=== PATIENT | male | born 1995 | race African-American/Black ===

== ENCOUNTER 2020-10-21 12:00 | Emergency (ER) | payer BC ==
[~2020-10-21] VITALS: Ht 185.4 cm; Wt 83.3 kg
--- NOTE | 2020-10-21 12:27 | NUR ---
CALLED FOR PT. PT NOT IN LOBBY
[2020-10-21] MEDS ORDERED: SODIUM CHLORIDE FLUSH 10ML SYR IVF ONE (13:00)
[2020-10-21] MEDS ORDERED: SODIUM CHLORIDE 0.9% 1,000ML IVBOLUS ONE (13:00)
[2020-10-21] MEDS ORDERED: FAMOTIDINE 20 MG/2 ML IVPush ONE (13:00)
[2020-10-21] MEDS ORDERED: MAALOX/HYOSCYAMINE/LIDOCAINE 45 ML BTL PO ONE (13:00)
[2020-10-21] MEDS ORDERED: ONDANSETRON 2MG/ML, 2ML IVPush ONE (13:00)
[2020-10-21 13:31] LABS: BASOPHILS % (AUTO) 1 % (0-1); EOSINOPHILS % (AUTO) 1 % (1-7); LYMPHOCYTES % (AUTO) 9 % (22-44); MEAN CORPUSCULAR HEMOGLOBIN 28.1 pg (27.5-34.5); MEAN CORPUSCULAR HGB CONC 33.8 g/dL (33.2-36.2); MEAN PLATELET VOLUME 8.4 fL (7.4-10.4); MONOCYTES % (AUTO) 5 % (2-9); NEUTROPHILS % (AUTO) 85 % (42-75); PLATELET COUNT 286 x10^3/uL (130-400); RED BLOOD COUNT 6.07 x10^6/uL (4.38-5.82); RED CELL DISTRIBUTION WIDTH 14.2 % (9.4-14.8)
[2020-10-21 13:32] LABS: ALANINE AMINOTRANSFERASE 27 U/L (12-78); ALBUMIN 4.6 g/dL (3.4-5.0); ANION GAP 8 mmol/L (5-15); CALCIUM 9.7 mg/dL (8.5-10.1); CHLORIDE 105 mmol/L (98-107); CREATININE 1.34 mg/dL (0.7-1.3)
[2020-10-21 13:34] LABS: ALKALINE PHOSPHATASE 51 U/L (45-117); TOTAL PROTEIN 8.3 g/dL (6.4-8.2)
--- NOTE | 2020-10-21 16:18 | NUR ---
PT AMBULATORY TO ROOM FROM LOBBY
--- NOTE | 2020-10-21 16:24 | NUR ---
ERP IN TO SEE PT. PER ERP, HOLD ON UA AND IV/IV MEDICATIONS. PO MEDS TO BE ORDERED.
[2020-10-21] MEDS ORDERED: MAALOX/HYOSCYAMINE/LIDOCAINE 45 ML BTL ONE (16:26)
[2020-10-21] MEDS ORDERED: ONDANSETRON ODT 4 MG ONE (16:26)
[2020-10-21] MEDS ORDERED: FAMOTIDINE 20 MG TABLET ONE (16:26)
[2020-10-21] MEDS ORDERED: FAMOTIDINE 20 MG TABLET PO ONE (16:30)
[2020-10-21] MEDS ORDERED: ONDANSETRON ODT 4 MG PO ONE (16:30)
--- NOTE | 2020-10-21 16:30 | NUR ---
MEDS GIVEN PER ERP ORDER. PT STATES IMMEDIATE PAIN RELIEF AFTER GI COCKTAIL.
--- NOTE | 2020-10-21 17:12 | NUR ---
PT STATES HE FEELS BETTER, PT FOR RECHECK.
[2020-10-21 18:06] VITALS: BP 121/68
== END 2020-10-21 18:08 | disposition home or self-care (01) ==
LOC: ED 16:52
DX: R10.84 Generalized abdominal pain (principal); R11.2 Nausea with vomiting, unspecified
CPT/HCPCS: 36415; 76700; 80053; 83690; 85025; 99284; Q0162